=== PATIENT | female | born 1980 | race Caucasian/White ===

== ENCOUNTER 2017-06-13 08:36 | Emergency (ER) | payer SELFPAY ==
[2017-06-13] MEDS ORDERED: Ibuprofen 200 MG TAB ONE (09:18)
[2017-06-13 09:46] LABS: Bilirubin Negative (Negative); Blood, Urine Moderate (Negative); Glucose, Urine (Dipstick) Negative (Negative); Ketone, Urine Negative (Negative); Nitrite Negative (Negative); Protein, Urine (Dipstick) Negative (Neg-Trace); Urobilinogen 0.2 mg/dL (0.2-1.0)
[2017-06-13 09:46] LABS: Hematocrit 24.8 % (36.0-47.0); Red Blood Cell (RBC) Count 3.83 mill/uL (4.20-5.40)
[2017-06-13 09:59] LABS: Bacteria/HPF None Seen HPF (None Seen); Hyaline Casts/LPF 0-3 HYALINE CAST LPF (0-3 Hyaline); Squamous Epithelial 0-3 HPF (0-3); WBC/HPF None Seen HPF (0-3)
[2017-06-13 10:08] LABS: #Eosinphils 0.1 thou/uL (0.0-0.7); #Lymphocytes 1.3 thou/uL (1.20-3.40); #Monocytes 0.4 thou/uL (0.11-0.59); #Neutrophils 5.1 thou/uL (1.40-6.50); %Basophils 0.3 % (0.0-1.0); %Eosinophils 1.6 % (0.0-10.0); %Monocytes 6.2 % (0.0-10.0); Anisocytosis SLIGHT = 6-15 cells (100X) (0-5/hpf); Hypochromia SLIGHT = 6-15 cells (100X) (0-5/hpf); Microcytosis SLIGHT = 6-15 cells (100X) (0-5/hpf)
== END 2017-06-13 10:35 | disposition home or self-care (01) ==
LOC: ERS 08:36
DX: R53.83 Other fatigue (principal); R05 Cough; D50.9 Iron deficiency anemia, unspecified; Z79.899 Other long term (current) drug therapy
CPT/HCPCS: 36415; 81003; 81015; 81025; 85025; 87081; 87430; 99283

== ENCOUNTER 2017-12-12 23:58 | Emergency (ER) | payer SELFPAY ==
[2017-12-13] MEDS ORDERED: Ketorolac Tromethamine 30 MG/ML VIAL ONE (01:25)
--- NOTE | 2017-12-13 08:03 | RAD ---
RIGHT ELBOW FOUR VIEWS: HISTORY: Injury. COMPARISON: None. FINDINGS: There is a moderate sized joint effusion on the lateral radiograph. No displaced fracture is appreci ated. The soft tissues are unremarkable. IMPRESSION: Moderate sized joint effusion without displaced fracture, suggesting a radiographically occult radial head/neck fracture. Follow-up radiographs in 6-10 days can be obtained. POS: [facility]
== END 2017-12-13 02:00 | disposition home or self-care (01) ==
LOC: ERS 23:58
DX: M25.521 Pain in right elbow (principal); D50.0 Iron deficiency anemia secondary to blood loss (chronic)
CPT/HCPCS: 96372; J1885

== ENCOUNTER 2017-12-15 20:18 | Observation (INO) | payer SELFPAY ==
[2017-12-15] MEDS ORDERED: Acetaminophen 500 MG TAB ONE (20:49)
[2017-12-15] MEDS ORDERED: Metoclopramide HCl 10 MG/2 ML VIAL ONE (20:49)
--- NOTE | 2017-12-15 20:50 | RAD ---
SINGLE VIEW CHEST: 12/15/17 COMPARISON: 10/15/16 HISTORY: Weakness that began tonight with chest pain. FINDINGS: Single view of the chest shows a normal sized cardiomediastinal silhouette. There is no evidence of c onsolidation, mass, or pleural effusion. The bones are unremarkable. IMPRESSION: No evidence of acute cardiopulmonary disease. POS: [facility]
[2017-12-15 20:52] LABS: Hemoglobin 7.4 g/dL (12.0-16.0); Mean Corpuscular HGB CONC 28.8 g/dL (32.0-36.0); Mean Corpuscular Hemoglobin 17.7 pg (27.0-31.0); Mean Corpuscular Volume 61.6 fl (81.0-99.0); Mean Platelet Volume 11.1 fL (7.4-10.4); Platelet Count 390 thou/uL (130-400); RBC Distribution Width 17.3 % (11.5-14.5); Red Blood Cell (RBC) Count 4.16 mill/uL (4.20-5.40); White Blood Cell (WBC) Count 8.4 thou/uL (4.8-10.8)
[2017-12-15 20:53] LABS: Prothrombin Time 13.1 SEC (12.0-14.7)
[2017-12-15 21:09] LABS: ALT (SGPT) 17 U/L (8-55); AST (SGOT) 21 U/L (5-34); Albumin 4.1 g/dL (3.5-5.0); Alkaline Phosphatase 47 U/L (40-150); Anion Gap 11 mmol/L (10-20); BHCG - Serum Negative (NEGATIVE); BUN (Urea Nitrogen) 12 mg/dL (7.0-18.7); Bilirubin, Total 0.3 mg/dL (0.2-1.2); Calc. Creatinine Clearance 0 mL/min (70-130); Calcium 9.1 mg/dL (7.8-10.44); Carbon Dioxide 20 mmol/L (22-29); Chloride 108 mmol/L (98-107); Estimated GFR-MDRD 74; Globulin 3.8 g/dL (2.4-3.5); Glucose 108 mg/dL (70-105); Lipase 45 U/L (8-78); Potassium 3.4 mmol/L (3.5-5.1); Pregs Control Background? CLEAR/WHITE (CLR/WHITE); Pregs Control Bar Appear? YES (CONTROL BAR); Protein, Total 7.9 g/dL (6.0-8.3); Sodium 136 mmol/L (136-145)
[2017-12-15 21:10] LABS: #Basophils 0.1 thou/uL (0.0-0.2); #Lymphocytes 1.8 thou/uL (1.20-3.40); #Monocytes 0.5 thou/uL (0.11-0.59); %Basophils 0.7 % (0.0-1.0); %Eosinophils 0.6 % (0.0-10.0); %Lymphocytes 21.4 % (21.0-51.0); %Monocytes 5.6 % (0.0-10.0); %Neutrophils 71.7 % (42.0-75.0); Anisocytosis SLIGHT = 6-15 cells (100X) (0-5/hpf); Hypochromia MODERATE=16-30 cells (100X) (0-5/hpf); MDiff Complete? YES; Microcytosis MODERATE=15-30 cells (100X) (0-5/hpf); PLT Morphology Comment Appears Adequate
[2017-12-15 21:12] LABS: CKMB 1.3 ng/mL (0-6.6); Troponin I Less than 0.010 ng/mL (< 0.028)
[2017-12-15 21:29] LABS: Bilirubin Negative (Negative); Blood, Urine Negative (Negative); Clarity CLEAR (Clear); Glucose, Urine (Dipstick) Negative (Negative); Leukocyte Negative (Negative); Nitrite Negative (Negative); Protein, Urine (Dipstick) Negative (Neg-Trace); Urobilinogen 0.2 mg/dL (0.2-1.0)
[2017-12-16 00:19] LABS: Troponin I Less than 0.010 ng/mL (< 0.028)
[2017-12-16] MEDS ORDERED: Ondansetron ODT 4 MG TAB PO PRN (01:05)
[2017-12-16] MEDS ORDERED: Ondansetron HCl/PF 4 MG/2 ML Vial IVP PRN (01:05)
[2017-12-16] MEDS ORDERED: Acetaminophen 500 MG TAB PO PRN (01:05)
[2017-12-16] MEDS ORDERED: Sodium Chloride 0.9% 1,000 ML IV SCH ×2 (01:15→09:09)
[2017-12-16 01:21] LABS: Reticulocyte Count 1.4 % (0.5-1.5)
[2017-12-16] MEDS ORDERED: Potassium Chloride 20 MEQ TAB PO SCH ×3 (01:30→17:00)
[2017-12-16 01:32] LABS: Iron 15 ug/dL (50-170); Iron Binding Capacity, Total 508 mcg/dL (265-497)
[2017-12-16 02:05] VITALS: BMI 30.6
[2017-12-16 03:09] LABS: Troponin I Less than 0.010 ng/mL (< 0.028)
[2017-12-16 03:16] LABS: Anion Gap 8 mmol/L (10-20); Anisocytosis SLIGHT = 6-15 cells (100X) (0-5/hpf); BUN (Urea Nitrogen) 12 mg/dL (7.0-18.7); Calc. Creatinine Clearance 137 mL/min (70-130); Calcium 8.6 mg/dL (7.8-10.44); Carbon Dioxide 20 mmol/L (22-29); Chloride 113 mmol/L (98-107); Eosinophils 3 % (0-10); Estimated GFR-MDRD 86; Glucose 91 mg/dL (70-105); Hemoglobin 6.4 g/dL (12.0-16.0); Hypochromia MODERATE=16-30 cells (100X) (0-5/hpf); Lymphocytes 36 % (21-51); MDiff Complete? YES; Mean Corpuscular HGB CONC 29.8 g/dL (32.0-36.0); Mean Corpuscular Hemoglobin 17.9 pg (27.0-31.0); Mean Corpuscular Volume 60.3 fl (81.0-99.0); Mean Platelet Volume 10.5 fL (7.4-10.4); Microcytosis MODERATE=15-30 cells (100X) (0-5/hpf); Monocytes 2 % (0-10); Neutrophil 59 % (42-75); PLT Morphology Comment Appears Adequate; Platelet Count 285 thou/uL (130-400); Potassium 3.9 mmol/L (3.5-5.1); Red Blood Cell (RBC) Count 3.56 mill/uL (4.20-5.40); Sodium 137 mmol/L (136-145); White Blood Cell (WBC) Count 6.4 thou/uL (4.8-10.8)
--- NOTE | 2017-12-16 04:47 | HP ---
DATE OF ADMISSION: 12/15/2017 PRIMARY CARE PROVIDER: Davi in [place], [place]. CHIEF COMPLAINT: General weakness and dizziness. HISTORY OF PRESENT ILLNESS: This is a 37-year-old female who presented to [facility] complaining of increased dizziness, unsteadiness and fatigue after getting out of the bathtub today. The patient states she felt lightheaded with mild chest discomfort with a known history of a nemia. The patient states she has been iron deficient in the past and had previously been treated wi th iron supplementation; however, has been off this medication for some time. The patient also state s that she received packed red blood cells approximately 2 years prior to this evaluation after she w as discovered with a hemoglobin in the 6 range. The patient does admit her menstrual cycles are 7 to 8 days in length, generally heavy in the first 3 days, at which point she takes ibuprofen for relief of her cramps and symptoms. The patient states she usually takes 6 tablets at once on the 1st day a nd subsequently weans down to approximately 2 tablets by the time of her cycle has ended. She states typically she did not take ibuprofen on days that she is not having her menstrual cycle. The patien t denied any blood in the stool, reflux symptoms, hematemesis or easy bruising. The patient denies a ny specific chronic medications or exposure history. The patient states her last pelvic surgery was 18 years ago when she had a section. The patient admits she has had 3 deliveries, one vagin al and two sections. The patient's last menstrual cycle was from 11/25/2017 through 018. The patient states she was treated in the past with oral contraceptive pills, but these did not help her bleeding. The patient was evaluated in the emergency department with a hemoglobin of 7.4, hematocrit 25.6 and MCV of 62. Metabolic screening showed mild hyponatremia and hypokalemia. Serum beta hCG was negative. The patient states she is normally functional of all activities of daily david ng. PAST MEDICAL HISTORY: 1. Iron deficiency anemia with previous transfusion of packed red blood cells approximately 2 years prior to this evaluation. 2. Question of menorrhagia. 3. Right elbow contusion status post fall 3 days prior to this evaluation. 4. History of premature ventricular contractions. PAST SURGICAL HISTORY: Status post section x2, last performed 18 years prior to this evalua tion. BRUSH POLISHER HISTORY: 3, para 3, one spontaneous vaginal delivery and 2 sections. Last m enstrual period 11/25/2017 through 12/03/2017. CURRENT MEDICATIONS: Ibuprofen as needed. ALLERGIES: No known drug allergies. FAMILY HISTORY: No inheritable diseases per patient report. SOCIAL HISTORY: The patient denies any tobacco or illicit drug use. Social alcohol use. Resides in the [place], [place] area. REVIEW OF SYSTEMS: The following complete review of systems was negative, unless otherwise mentioned in the HPI or below: Constitutional: Weight loss or gain, ability to conduct usual activities. Sk in: Rash, itching. Eyes: Double vision, pain. ENT/Mouth: Nose bleeding, neck stiffness, pain, te nderness. Cardiovascular: Palpitations, dyspnea on exertion, orthopnea. Respiratory: Shortness of breath, wheezing, cough, hemoptysis, fever or night sweats. Gastrointestinal: Poor appetite, abdom inal pain, heartburn, nausea, vomiting, constipation, or diarrhea. Genitourinary: Urgency, frequenc y, dysuria, nocturia. Musculoskeletal: Pain, swelling. Neurologic/Psychiatric: Anxiety, depressio n. Allergy/Immunologic: Skin rash, bleeding tendency. Otherwise negative except as stated per HPI. PHYSICAL EXAMINATION: VITAL SIGNS: On admission, blood pressure 103/75, pulse 89, respiratory rate 17, temperature 98.5 de grees Fahrenheit, O2 saturation 100% on room air. GENERAL APPEARANCE: This is a 37-year-old female, alert and oriented x3, pleasant, pale ap pearing, in no acute distress. HEENT: Pupils are equal, round, and reactive to light and accommodation. Extraocular muscles are in tact. No scleral icterus, no conjunctival injection. Nares patent. OP is clear. Teeth in fair rep air. NECK: Supple, no cervical adenopathy, no thyromegaly, no carotid bruits, no JVD appreciated. Cervic al spine with full active and passive range of motion. No meningeal signs appreciated. CHEST: Lungs are clear to auscultation bilaterally. CARDIOVASCULAR: S1, S2 with premature beats noted. ABDOMEN: Rounded, soft, nontender, nondistended. Bowel sounds are positive in all four quadrants. There is no hepatosplenomegaly, no abdominal bruits, no rebound or guarding appreciated. EXTREMITIES: Warm and dry with fair turgor. No clubbing, cyanosis or asymmetric edema appreciated. Pulses palpable distally at the dorsalis pedis, posterior tibial, and popliteal arteries bilaterally . Capillary refill less than 2 seconds. SKIN: Shows multiple tattoos of the extremities. PERTINENT LABORATORY AND X-RAY FINDINGS: Sodium 136, potassium 3.4, chloride 108, CO2 of 20, BUN 12, creatinine 0.85, estimated GFR of 74, glucose 108. Lactic acid level 0.9, calcium 9.1. LFTs within normal limits. Troponin I negative x1. Albumin 4.1, lipase 45. TSH 2.88. Serum beta hCG negative on 12/15/2017. CBC showed a white blood cell count 8.4, hemoglobin 7.4, hematocrit 26, MCV 62, plat elet count 390 with normal differential. PT 13.1, INR 1.0, PTT 30.0. Urinalysis negative. Stool He moccult dated 12/15/2017 positive x1. EKG dated 12/15/2017 by my interpretation shows sinus mechanis m with heart rates in the 90s. PVCs noted. Normal R-wave progression noted in the precordial leads. Normal axis. No acute ST-T wave changes appreciated. Portable chest x-ray dated 12/15/2017 showed no acute cardiopulmonary process. ASSESSMENT AND PLAN: 1. Symptomatic microcytic anemia. The patient will be observed on the medical floor. Suspect chron ic iron deficiency component with influence of menorrhagia. We will continue serial H and H monitori ng. Suspect vaginal source. Consider transfusion of packed red blood cells if patient's hemoglobin continues to decrease. Check serum iron, TIBC, ferritin and reticulocyte count. Recommend sitter fe rrous sulfate 325 mg b.i.d. 2. Menorrhagia. We will check pelvic ultrasound to assess for evidence of uterine fibroids. Consid er CERTIFIED CYTOTECHNOLOGIST consult potentially as outpatient. 3. Hypokalemia. We will provide potassium chloride 40 mEq b.i.d. and repeat potassium level in the a.m. 4. Prophylaxis. Sequential compression devices while in bed. Pepcid 20 mg p.o. b.i.d. 5. Code status is FULL. Surrogate medical decision maker is patient's spouse.
[2017-12-16] MEDS ORDERED: Famotidine 20 MG TAB PO SCH (09:00)
[2017-12-16] MEDS ORDERED: Iron Sucrose Complex 200 MG in Sodium Chloride 0.9% 250 ML 250 ML IVPB SCH (09:15)
[2017-12-16] MEDS ORDERED: Sodium Ferric Gluconate 250 MG, Admixture Fee 1 EACH in Sodium Chloride 0.9% 250 ML 250 ML IVPB SCH (09:15)
[2017-12-16] MEDS ORDERED: Cyanocobalamin (Vitamin B-12) 1,000 MCG TAB PO SCH (10:00)
[2017-12-16] MEDS ORDERED: Multivit, Therapeutic 1 TAB PO SCH (10:00)
[2017-12-16] MEDS ORDERED: Folic Acid 1 MG TAB PO SCH (10:00)
--- NOTE | 2017-12-16 11:31 | ULT ---
TRANSVAGINAL PELVIC ULTRASOUND WITH DOPPLER: HISTORY: Menorrhagia. Anemia. COMPARISON: Pelvis ultrasound from 2011. TECHNIQUE: Real-time mohamud-scale color Doppler and spectral analysis of the pelvis was performed via a transabdom inal and transvaginal approach. FINDINGS: The uterus measures 11.6 x 4.7 x 6.4 cm. Endometrial thickness is 1 cm. There is a 1.8 cm hypoechoic focus at the uterine fundus. There is a complex cyst of the left ovary, measuring 2.7 x 2 x 2.7 cm. Small volume fluid in the endometrial canal. Vascular flow to both ovaries is limited. The right ovary measures 3.8 x 2.7 x 1.5 cm, and the left ovary measures 3.6 x 3 x 2.3 cm. No free f luid. IMPRESSION: 1. Small hypoechoic focus of the uterine fundus, measuring up to 1.8 cm, likely a small fibroid. 2. Small volume fluid within the endometrial canal, which may represent hemorrhage. 3. Complex left ovarian cyst, measuring up to 2.7 cm. POS: [facility]
[2017-12-16 12:27] VITALS: BP 118/57; TEMP 98.2
[2017-12-16 12:31] LABS: Hemoglobin 7.6 g/dL (12.0-16.0); Platelet Count 253 thou/uL (130-400)
--- NOTE | 2017-12-17 06:58 | DIS ---
DATE OF DISCHARGE: 12/16/2017 DISCHARGE DISPOSITION: Home. FOLLOWUP: 1. With [facility] in 1 week. 2. Follow up with [employer] as outpatient at [facility]. BRIEF HOSPITAL COURSE: Patient is a 37-year-old female with menorrhagia and chronic iron deficiency requiring blood transfusions in the past, presented to the hospital with generalized weakness and diz ziness. Her workup was consistent with hemoglobin of 6.4 with reticulocyte of 1.4, iron of 15, TIBC 508, ferritin of less than 2. Please refer to the history and physical for further details. The patient was admitted to the medical floor with a diagnosis of symptomatic anemia. She received 1 unit of PRBC due to hemoglobin of less than 7. She also received 200 mg of iron sucrose complex. A pelvic ultrasound was done that showed a complex ovarian cyst along with 1.8 cm possible fibroid. A n outpatient DOCUMENTATION CLERK workup at the [facility] is recommended. Please note that patient had stool for occult blood that was positive. She denies any melena, hemato chezia, or hematemesis. She may benefit from an outpatient GI evaluation. At this time, the patient has menorrhagia and it is the probable cause of the anemia. A repeat hemoglobin after 1 week is rec ommended. Primary care physician advised to follow. She has been started on oral iron supplementati on, folic acid, multivitamin, and vitamin B12. FINAL DIAGNOSES: 1. Symptomatic anemia, status post 1 unit of PRBC. 2. Iron deficiency anemia. 3. Chronic menorrhagia. 4. Hypokalemia, corrected. 5. Obesity with a body mass index of 30.6. SIGNIFICANT LABORATORY DATA: 1. TSH was 2.8. 2. Troponins were negative. 3. MCV 61.6, MCH 17.7. Plan of care was discussed with the patient in detail. She stated understanding.
--- NOTE | 2017-12-26 00:25 | EKG ---
Test Reason : CP Blood Pressure : / mmHG Vent. Rate : 094 BPM Atrial Rate : 097 BPM P-R Int : 116 ms QRS Dur : 086 ms QT Int : 372 ms P-R-T Axes : 000 026 025 degrees QTc Int : 465 ms Undetermined rhythm Nonspecific ST and T wave abnormality Prolonged QT Abnormal ECG Confirmed by ALYSON AVILA ([id number]), business editor KWABENA POLANCO ([id number]) on 12/26/2017 12:25:03 AM Referred By: Confirmed By:ALYSON AVILA
== END 2017-12-16 15:20 | disposition home or self-care (01) ==
LOC: ERS 20:18 → 2SW 22:53
PROVIDERS: ADMIT Family Medicine; ATTEND Family Medicine
DX: D50.0 Iron deficiency anemia secondary to blood loss (chronic) (principal); N92.0 Excessive and frequent menstruation with regular cycle; E87.6 Hypokalemia; E66.9 Obesity, unspecified; Z68.30 Body mass index [BMI] 30.0-30.9, adult
CPT/HCPCS: 36415; 36430; 71045; 76856; 80048; 80053; 81003; 82274; 82553; 82728; 83540; 83550; 83605; 83690; 84443; 84484; 84703; 85007; 85025; 85027; 85046; 85610; 85730; 86850; 86900; 86901; 93005; 96361; 96365; 96366; 96374; G0378; J2765; J2916; J7050; P9016

== ENCOUNTER 2017-12-19 20:51 | Emergency (ER) | payer SELFPAY ==
[2017-12-19] MEDS ORDERED: HYDROcodone/Acetaminophen 10/325 mg Tablet ONE (21:11)
--- NOTE | 2017-12-19 23:12 | ULT ---
DOPPLER VENOUS ULTRASOUND OF THE RIGHT UPPER EXTREMITY: Indication: Pain, redness, and swelling. Previous ===== near the antecubital fossa of the right upper extremity. Technique: Grayscale, color doppler, and vascular duplex with spectral analysis of performed of the v enous structures of the right upper extremity. FINDINGS: There is normal compression, flow, and augmentation seen within the venous structures of the right up per extremity except for the cephalic vein at the level of the mid right arm to the level of the elbo w. There is some partially occlusive thrombus seen at the level of the elbow with more occlusive clot seen at the level of the arm. IMPRESSION: 1. Venous thrombosis of the right cephalic vein from the elbow to the mid right arm. 2. No evidence of additional venous thrombosis. POS: [facility]
== END 2017-12-19 22:46 | disposition home or self-care (01) ==
LOC: ERS 20:51
DX: I80.9 Phlebitis and thrombophlebitis of unspecified site (principal); L03.113 Cellulitis of right upper limb; D50.0 Iron deficiency anemia secondary to blood loss (chronic)

== ENCOUNTER 2017-12-29 15:20 | Emergency (ER) | payer SELFPAY | END 2017-12-29 18:33 | disposition home or self-care (01) | LOC: ERS 15:20 | DX: I87.001 Postthrombotic syndrome without complications of right lower extremity (principal); I80.8 Phlebitis and thrombophlebitis of other sites; D50.0 Iron deficiency anemia secondary to blood loss (chronic) | CPT/HCPCS: 99283 ==

== ENCOUNTER 2018-02-22 19:03 | Emergency (ER) | payer SELFPAY ==
--- NOTE | 2018-02-22 22:25 | ULT ---
RIGHT UPPER EXTREMITY VENOUS ULTRASOUND: 02/22/18 HISTORY: Right arm pain. Previous thrombus. COMPARISON: 12/19/17. TECHNIQUE: De Leon scale, color flow, doppler imaging with spectral waveform analysis performed in the right upper extremity venous system. FINDINGS: There is compressibility and flow in the internal jugular vein. There is flow in the subclavian vein. There is flow in the axillary vein. There is compressibility and flow in the basilic vein, ulnar vei n, radial vein, and brachial vein. There is improved flow in the cephalic vein. There is partial comp ressibility just below level of the elbow. Partial thrombus is favored. The remainder of the cephalic vein appears to be patent. IMPRESSION: Partial thrombus in the cephalic vein just below the level of the elbow. POS: [facility]
== END 2018-02-22 22:27 | disposition home or self-care (01) ==
LOC: ERS 19:03
DX: I87.009 Postthrombotic syndrome without complications of unspecified extremity (principal); D50.9 Iron deficiency anemia, unspecified

== ENCOUNTER 2018-03-23 18:17 | Emergency (ER) | payer SELFPAY ==
[2018-03-23] MEDS ORDERED: Ketorolac Tromethamine 30 MG/ML VIAL ONE (18:38)
[2018-03-23] MEDS ORDERED: Adacel (T-DAP) 0.5 ML VIAL ONE (18:38)
== END 2018-03-23 18:54 | disposition home or self-care (01) ==
LOC: ERS 18:17
DX: L03.311 Cellulitis of abdominal wall (principal); D50.9 Iron deficiency anemia, unspecified; Z79.899 Other long term (current) drug therapy
CPT/HCPCS: 90471; 90715; 96372; J1885

== ENCOUNTER 2018-05-18 11:08 | Emergency (ER) | payer SELFPAY ==
[2018-05-18 11:54] LABS: #Basophils 0.1 thou/uL (0.0-0.2); #Eosinphils 0.1 thou/uL (0.0-0.7); #Lymphocytes 2.2 thou/uL (1.20-3.40); #Monocytes 0.8 thou/uL (0.11-0.59); #Neutrophils 8.3 thou/uL (1.40-6.50); %Basophils 0.5 % (0.0-1.0); %Eosinophils 0.6 % (0.0-10.0); %Lymphocytes 19.1 % (21.0-51.0); %Monocytes 7.1 % (0.0-10.0); %Neutrophils 72.6 % (42.0-75.0); Hemoglobin 8.2 g/dL (12.0-16.0); Mean Corpuscular HGB CONC 30.5 g/dL (32.0-36.0); Mean Corpuscular Hemoglobin 20.6 pg (27.0-31.0); Mean Corpuscular Volume 67.6 fL (78.0-98.0); Mean Platelet Volume 7.7 fL (7.4-10.4); Platelet Count 343 thou/uL (130-400); Red Blood Cell (RBC) Count 3.97 mill/uL (4.20-5.40); White Blood Cell (WBC) Count 11.5 thou/uL (4.8-10.8)
[2018-05-18 12:26] LABS: Hypochromia MODERATE=16-30 cells (100X) (0-5/hpf); MDiff Complete? YES; Microcytosis MODERATE=15-30 cells (100X) (0-5/hpf); Ovalocytes SLIGHT = 2-5 cells (100X) (0-1/hpf); PLT Morphology Comment Appears Adequate; Polychromasia SLIGHT = 2-3 cells (100X) (0-2/hpf); Reflex for Review?? YES
[2018-05-18 13:12] LABS: Pregnancy Test - Urine (BHCG) Negative (Negative); Pregu Control Background? CLEAR/WHITE (CLR/WHITE); Pregu Control Bar Appear? YES (CONTROL BAR); Specific Gravity 1.022 (1.002-1.036)
[2018-05-18 13:20] LABS: Anion Gap 10 mmol/L (10-20); BUN (Urea Nitrogen) 13 mg/dL (7.0-18.7); Calc. Creatinine Clearance 0 mL/min (70-130); Carbon Dioxide 22 mmol/L (22-29); Chloride 108 mmol/L (98-107); Estimated GFR-MDRD 68; Glucose 87 mg/dL (70-105); Potassium 3.4 mmol/L (3.5-5.1); Sodium 137 mmol/L (136-145)
== END 2018-05-18 15:05 | disposition home or self-care (01) ==
LOC: ERS 11:08
DX: D50.0 Iron deficiency anemia secondary to blood loss (chronic) (principal); N93.9 Abnormal uterine and vaginal bleeding, unspecified
CPT/HCPCS: 80048; 81025; 85025; 85060; 86850; 86900; 86901; 93005; 94760

== ENCOUNTER 2018-07-05 17:04 | Emergency (ER) | payer SELFPAY ==
[2018-07-05 17:44] LABS: #Eosinphils 0.1 thou/uL (0.0-0.7); #Monocytes 0.5 thou/uL (0.11-0.59); #Neutrophils 4.7 thou/uL (1.40-6.50); %Basophils 0.6 % (0.0-1.0); %Eosinophils 1.2 % (0.0-10.0); %Lymphocytes 27.3 % (21.0-51.0); %Monocytes 7.2 % (0.0-10.0); %Neutrophils 63.7 % (42.0-75.0); Mean Corpuscular HGB CONC 29.2 g/dL (32.0-36.0); Mean Corpuscular Volume 68.5 fL (78.0-98.0); Mean Platelet Volume 8.5 fL (7.4-10.4); Platelet Count 306 thou/uL (130-400); RBC Distribution Width 16.9 % (11.5-14.5); White Blood Cell (WBC) Count 7.3 thou/uL (4.8-10.8)
[2018-07-05 18:33] LABS: BHCG - Serum Negative (NEGATIVE); Pregs Control Background? CLEAR/WHITE (CLR/WHITE); Pregs Control Bar Appear? YES (CONTROL BAR)
[2018-07-05] MEDS ORDERED: Ketorolac Tromethamine 30 MG/ML VIAL ONE (18:48)
== END 2018-07-05 19:13 | disposition home or self-care (01) ==
LOC: ERS 17:04
DX: N94.6 Dysmenorrhea, unspecified (principal); D50.9 Iron deficiency anemia, unspecified
CPT/HCPCS: 36415; 84703; 85025; 96374; J1885

== ENCOUNTER 2018-09-26 12:08 | Emergency (ER) | payer SELFPAY | END 2018-09-26 13:52 | disposition left against medical advice (07) | LOC: ERS 12:08 | DX: Z53.21 Procedure and treatment not carried out due to patient leaving prior to being seen by health care provider (principal) ==

== ENCOUNTER 2018-10-17 16:05 | Emergency (ER) | payer SELFPAY ==
--- NOTE | 2018-10-17 19:31 | RAD ---
ONE VIEW CHEST: HISTORY: Cough. Congestion. Bodyaches. COMPARISON: 12/15/2017 FINDINGS: Normal cardiac silhouette. There is an increased density projecting to the right of the spine, over the right heart silhouette. Findings may be due to ectasia of the descending thoracic aorta. Noneme rgent CT is recommended. Pulmonary vessels and hilum are normal. Costophrenic angles are clear. No masses or consolidation. No pneumothorax or osseous abnormalities. IMPRESSION: 1. No acute cardiopulmonary process. 2. Increased density projecting over the right heart border. Findings may be due to ectasia of the descending thoracic aorta. Nonemergent CT scan be performed. POS: [facility]
== END 2018-10-17 19:50 | disposition home or self-care (01) ==
LOC: ERS 16:05
DX: J20.9 Acute bronchitis, unspecified (principal); D50.9 Iron deficiency anemia, unspecified; Z79.899 Other long term (current) drug therapy
CPT/HCPCS: 71045; 87081; 87430; 87804

== ENCOUNTER 2018-10-24 13:20 | Emergency (ER) | payer SELFPAY ==
[2018-10-24 14:38] LABS: #Basophils 0.1 thou/uL (0.0-0.2); #Eosinphils 0.1 thou/uL (0.0-0.7); #Monocytes 0.6 thou/uL (0.11-0.59); #Neutrophils 6.3 thou/uL (1.40-6.50); %Basophils 0.7 % (0.0-1.0); %Eosinophils 0.8 % (0.0-10.0); %Monocytes 6.6 % (0.0-10.0); %Neutrophils 69.8 % (42.0-75.0)
--- NOTE | 2018-10-24 14:50 | RAD ---
CHEST 2 VIEWS: Date: 10/24/18 HISTORY: Cough. COMPARISON: 10/15/16, 10/17/18. FINDINGS: Normal cardiac silhouette. Pulmonary vessels and hilum are normal. Costophrenic angles are clear. No consolidation or mass. No pneumothorax or osseous abnormalities. IMPRESSION: No acute cardiopulmonary process. POS: [facility]
[2018-10-24 14:54] LABS: ALT (SGPT) 10 U/L (8-55); AST (SGOT) 14 U/L (5-34); Albumin 3.6 g/dL (3.5-5.0); Alkaline Phosphatase 53 U/L (40-150); Anion Gap 10 mmol/L (10-20); BUN (Urea Nitrogen) 11 mg/dL (7.0-18.7); Bilirubin, Total 0.2 mg/dL (0.2-1.2); Calc. Creatinine Clearance 0 mL/min (70-130); Calcium 8.6 mg/dL (7.8-10.44); Carbon Dioxide 21 mmol/L (22-29); Chloride 110 mmol/L (98-107); Estimated GFR-MDRD 81; Globulin 3.4 g/dL (2.4-3.5); Glucose 86 mg/dL (70-105); Sodium 137 mmol/L (136-145)
[2018-10-24 15:16] LABS: Hemoglobin 8.6 g/dL (12.0-16.0); Hypochromia MODERATE=16-30 cells (100X) (0-5/hpf); MDiff Complete? YES; Mean Corpuscular HGB CONC 29.6 g/dL (32.0-36.0); Mean Platelet Volume 7.8 fL (7.4-10.4); Microcytosis MODERATE=15-30 cells (100X) (0-5/hpf); Platelet Count 337 thou/uL (130-400); Platelet Morphology Comment Appears Adequate; Polychromasia SLIGHT = 2-3 cells (100X) (0-2/hpf); RBC Distribution Width 15.5 % (11.5-14.5); Red Blood Cell (RBC) Count 4.09 mill/uL (4.20-5.40); Reflex for Review?? YES
== END 2018-10-24 16:34 | disposition home or self-care (01) ==
LOC: ERS 13:20
DX: J20.9 Acute bronchitis, unspecified (principal); D50.9 Iron deficiency anemia, unspecified; Z79.899 Other long term (current) drug therapy
CPT/HCPCS: 36415; 71046; 80053; 85025; 85060

== ENCOUNTER 2018-12-04 21:44 | Emergency (ER) | payer SELFPAY ==
[2018-12-04 22:25] LABS: Hemoglobin 8.1 g/dL (12.0-16.0); Mean Corpuscular HGB CONC 29.4 g/dL (32.0-36.0); Mean Corpuscular Hemoglobin 20.4 pg (27.0-31.0); Mean Corpuscular Volume 69.3 fL (78.0-98.0); Mean Platelet Volume 7.4 fL (7.4-10.4); Platelet Count 412 thou/uL (130-400); RBC Distribution Width 16.1 % (11.5-14.5); Red Blood Cell (RBC) Count 3.95 mill/uL (4.20-5.40); White Blood Cell (WBC) Count 7.6 thou/uL (4.8-10.8)
[2018-12-04 22:42] LABS: #Basophils 0.1 thou/uL (0.0-0.2); #Eosinphils 0.1 thou/uL (0.0-0.7); #Lymphocytes 2.4 thou/uL (1.20-3.40); #Monocytes 0.5 thou/uL (0.11-0.59); #Neutrophils 4.5 thou/uL (1.40-6.50); %Basophils 0.8 % (0.0-1.0); %Eosinophils 1.1 % (0.0-10.0); %Lymphocytes 31.4 % (21.0-51.0); %Monocytes 7.1 % (0.0-10.0); %Neutrophils 59.7 % (42.0-75.0); Hypochromia SLIGHT = 6-15 cells (100X) (0-5/hpf); MDiff Complete? YES; Microcytosis SLIGHT = 6-15 cells (100X) (0-5/hpf)
[2018-12-04 22:44] LABS: ALT (SGPT) 17 U/L (8-55); AST (SGOT) 17 U/L (5-34); Albumin 3.7 g/dL (3.5-5.0); Alkaline Phosphatase 54 U/L (40-150); Anion Gap 12 mmol/L (10-20); BUN (Urea Nitrogen) 13 mg/dL (7.0-18.7); Bilirubin, Total 0.2 mg/dL (0.2-1.2); Calc. Creatinine Clearance 0 mL/min (70-130); Calcium 9.3 mg/dL (7.8-10.44); Carbon Dioxide 24 mmol/L (22-29); Chloride 106 mmol/L (98-107); Estimated GFR-MDRD 72; Globulin 3.6 g/dL (2.4-3.5); Glucose 146 mg/dL (70-105); Potassium 3.9 mmol/L (3.5-5.1); Protein, Total 7.3 g/dL (6.0-8.3); Sodium 138 mmol/L (136-145)
[2018-12-05] MEDS ORDERED: Ketorolac Tromethamine 60 MG/2 ML VIAL ONE (00:14)
[2018-12-05 00:22] LABS: Pregnancy Test - Urine (BHCG) Negative (Negative); Pregu Control Background? CLEAR/WHITE (CLR/WHITE); Pregu Control Bar Appear? YES (CONTROL BAR)
[2018-12-05 00:23] LABS: Bilirubin Negative (Negative); Blood, Urine Large (Negative); Clarity CLOUDY (Clear); Glucose, Urine (Dipstick) Negative (Negative); Leukocyte Small (Negative); Nitrite Negative (Negative); Protein, Urine (Dipstick) Negative (Neg-Trace); Specific Gravity 1.016 (1.002-1.036); Specific Gravity, Urine 1.016 (1.002-1.036); Urobilinogen 0.2 mg/dL (0.2-1.0)
[2018-12-05 00:24] LABS: Pathc Cast-AUWi Flag 1.08 (0-2.49); Yeast-AUWi Flag 39.9 (0-25.0)
[2018-12-05 00:37] LABS: Bacteria/HPF Rare-Few HPF (None Seen); Hyaline Casts/LPF NONE SEEN LPF (0-3 Hyaline); RBC/HPF 21-50 HPF (0-3); Trichomonas/HPF 1+ HPF (None Seen); Yeast-All Forms None Seen HPF (None Seen)
== END 2018-12-05 00:50 | disposition home or self-care (01) ==
LOC: ERS 21:44
DX: A59.9 Trichomoniasis, unspecified (principal); R10.30 Lower abdominal pain, unspecified; D50.0 Iron deficiency anemia secondary to blood loss (chronic); Z79.51 Long term (current) use of inhaled steroids; Z79.899 Other long term (current) drug therapy
CPT/HCPCS: 36415; 80053; 81003; 81015; 81025; 83690; 85025; 96372; J1885

== ENCOUNTER 2019-03-08 21:30 | Emergency (ER) | payer SELFPAY | END 2019-03-08 21:50 | disposition home or self-care (01) | LOC: SCSER 21:30 | DX: R11.2 Nausea with vomiting, unspecified (principal); R19.7 Diarrhea, unspecified | CPT/HCPCS: 99283 ==

== ENCOUNTER 2019-03-13 15:52 | Emergency (ER) | payer SELFPAY ==
[2019-03-13 16:28] LABS: Hemoglobin 7.2 g/dL (12.0-16.0); Mean Corpuscular Hemoglobin 18.9 pg (27.0-31.0); Mean Corpuscular Volume 65.1 fL (78.0-98.0); Platelet Count 354 thou/uL (130-400); RBC Distribution Width 16.5 % (11.5-14.5); Red Blood Cell (RBC) Count 3.79 mill/uL (4.20-5.40); White Blood Cell (WBC) Count 6.5 thou/uL (4.8-10.8)
[2019-03-13 16:47] LABS: ALT (SGPT) 17 U/L (8-55); AST (SGOT) 19 U/L (5-34); Albumin 3.8 g/dL (3.5-5.0); Alkaline Phosphatase 44 U/L (40-150); Anion Gap 11 mmol/L (10-20); BUN (Urea Nitrogen) 12 mg/dL (7.0-18.7); Bilirubin, Total 0.3 mg/dL (0.2-1.2); Calc. Creatinine Clearance 0 mL/min (70-130); Calcium 8.7 mg/dL (7.8-10.44); Carbon Dioxide 24 mmol/L (22-29); Chloride 109 mmol/L (98-107); Estimated GFR-MDRD 68; Globulin 3.3 g/dL (2.4-3.5); Glucose 73 mg/dL (70-105); Potassium 3.6 mmol/L (3.5-5.1); Protein, Total 7.1 g/dL (6.0-8.3); Sodium 140 mmol/L (136-145)
[2019-03-13 17:01] LABS: #Eosinphils 0.1 thou/uL (0.0-0.7); #Lymphocytes 1.6 thou/uL (1.20-3.40); #Monocytes 0.5 thou/uL (0.11-0.59); #Neutrophils 4.3 thou/uL (1.40-6.50); %Basophils 0.6 % (0.0-1.0); %Eosinophils 1.2 % (0.0-10.0); %Lymphocytes 24.9 % (21.0-51.0); %Monocytes 6.9 % (0.0-10.0); %Neutrophils 66.4 % (42.0-75.0); Anisocytosis SLIGHT = 6-15 cells (100X) (0-5/hpf); Hypochromia SLIGHT = 6-15 cells (100X) (0-5/hpf); MDiff Complete? YES; Microcytosis SLIGHT = 6-15 cells (100X) (0-5/hpf); Platelet Morphology Comment Appears Adequate
[2019-03-13] MEDS ORDERED: Acetaminophen 500 MG TAB ONE (18:08)
--- NOTE | 2019-03-13 22:09 | CON ---
DATE OF CONSULTATION: 03/13/2019 CHIEF COMPLAINT: Vaginal bleeding. HISTORY OF PRESENT ILLNESS: The patient is a 38-year-old G3, P3 female, who is presenting to Labor and Delivery with longstanding vaginal bleeding. The patient reports that she has had multiple blood transfusions over the years here at [place]. She reports that she bleeds about 2 weeks out of the month with about 6-7 days of heavy bleeding requiring 6-7 of pads and tampons and the other days she reports are having more light. The patient reports she has had again multiple blood transfusions in the last several years. She was seen by Dr. Cass Denis about 5 months ago, who had recommended hysterectomy. However, the patient is without insurance and at that time had not acquired any. The patient reports that she in the past had been on multiple control pills in an attempt to get her bleeding under control. She does report she had a Pap smear done [address] Cass Denis, which came back negative. She was last seen in the emergency room about a year ago for vaginal bleeding, but was not transfused at that time. Reviewing the record, it appears that the patient had only 1 unit of blood in the last 3 years. I do not have access to prior years' at the time of evaluation. The patient denies any history of thrombosis or blood clots; however, in reviewing her medical record, it she appears a year ago in December 2017, had a venous thrombus of the right cephalic vein for which she presented for pain, redness and swelling. The patient was diagnosed with superficial thrombophlebitis and no evidence of deep vein thrombosis. The patient was given instructions on how to care for this and did not indicate anticoagulation. The patient denies any recent fevers, illness, falls, headache. She does report dizziness, fatigue and lightheadedness. Denies chest pain, shortness of breath, nausea, vomiting, diarrhea, constipation. Denies hip problems, knee problems or muscle weakness. PAST MEDICAL HISTORY: Anemia. PAST SURGICAL HISTORY: Two prior C-sections. SOCIAL HISTORY: Denies drug, alcohol or tobacco use. ALLERGIES: NO KNOWN DRUG ALLERGIES. MEDICATIONS: Iron, which she takes daily. PHYSICAL EXAMINATION: VITAL SIGNS: Reviewed and within normal limits. GENERAL: The patient appears to be in no acute distress. She is alert, oriented, cooperative, and pleasant to interact with. HEAD: Normocephalic, atraumatic. LUNGS: Clear to auscultation bilaterally. HEART: Regular rate and rhythm. ABDOMEN: Soft, nontender. EXTREMITIES: Nontender, nonedematous. : Has been deferred at this time. The patient reports that her bleeding is heavy, but it is slowing down. Given her reported history of normal Pap smears and requested to for endometrial biopsy until her bleeding is under better control, we have deferred exam. LABORATORY DATA: White count 6.5, hemoglobin 7.2, hematocrit 24.7, platelets 354,000. ASSESSMENT AND PLAN: The patient is a 38-year-old female with chronic anemia contributed by menorrhagia. The patient has a primary OB provide, Dr. Cass Denis who has been managing her. The patient has not followed up due to finding restraints. I have recommended to the ER physician 10 mg of progesterone twice a day to be taken until she can follow up with her primary OB. The patient does report that she is toward the end of her heavy days and should be going to light. For this reason, we have not started her on Lysteda or any other additional medication. We were unable to identify patient's history of blood transfusions. However, given her reported history, we can find documentation of these multiple transfusions in the past and if patient wants a blood transfusion with this presentation, it is reasonable at this point to discuss more further evaluation for endometrial ablation in-house to help eliminate repetitive visits to the ER and future transfusions. The ER physician and I have discussed these potential plans and she will be contacting me should the patient upon her evaluation require a blood transfusion. Job ID: [id number]
== END 2019-03-13 18:29 | disposition home or self-care (01) ==
LOC: ERS 15:52
DX: D64.89 Other specified anemias (principal); N92.0 Excessive and frequent menstruation with regular cycle; Z79.899 Other long term (current) drug therapy
CPT/HCPCS: 36415; 80053; 85025; 99284

== ENCOUNTER 2019-04-16 14:06 | Emergency (ER) | payer SELFPAY ==
[~2019-04-16 14:06] MED LIST: ISOVUE-370 76%-LOCM 1 ML ONE
[2019-04-16 15:48] LABS: #Basophils 0.1 thou/uL (0.0-0.2); #Eosinphils 0.1 thou/uL (0.0-0.7); #Lymphocytes 2.1 thou/uL (1.20-3.40); #Monocytes 0.6 thou/uL (0.11-0.59); #Neutrophils 6.1 thou/uL (1.40-6.50); %Basophils 0.7 % (0.0-1.0); %Eosinophils 1.2 % (0.0-10.0); %Lymphocytes 23.1 % (21.0-51.0); Hemoglobin 7.9 g/dL (12.0-16.0); Mean Corpuscular HGB CONC 29.5 g/dL (32.0-36.0); Mean Corpuscular Hemoglobin 18.6 pg (27.0-31.0); Mean Corpuscular Volume 63.1 fL (78.0-98.0); Mean Platelet Volume 8.8 fL (7.4-10.4); Platelet Count 365 thou/uL (130-400); RBC Distribution Width 17.3 % (11.5-14.5); Red Blood Cell (RBC) Count 4.24 mill/uL (4.20-5.40)
--- NOTE | 2019-04-16 15:56 | RAD ---
Chest AP view INDICATION: Chest pain COMPARISON: October 17, 2018 FINDINGS: Lungs:The lungs are clear Cardiac silhouette pulmonary vasculature:The cardiomediastinal silhouette appears within normal limit s. Pleural spaces:No pleural effusion or pneumothorax is demonstrated. Upper abdomen:No abnormality seen. Osseous structures: No acute osseous abnormality. Additional findings:None. IMPRESSION: No acute cardiopulmonary abnormality.
[2019-04-16 15:59] LABS: ALT (SGPT) 17 U/L (8-55); AST (SGOT) 21 U/L (5-34); Albumin 3.8 g/dL (3.5-5.0); Alkaline Phosphatase 55 U/L (40-150); Anion Gap 10 mmol/L (10-20); BUN (Urea Nitrogen) 12 mg/dL (7.0-18.7); Bilirubin, Total 0.3 mg/dL (0.2-1.2); Calc. Creatinine Clearance 0 mL/min (70-130); Carbon Dioxide 20 mmol/L (22-29); Chloride 108 mmol/L (98-107); Estimated GFR-MDRD 76; Globulin 3.5 g/dL (2.4-3.5); Glucose 79 mg/dL (70-105); Lipase 37 U/L (8-78); Potassium 4.1 mmol/L (3.5-5.1); Protein, Total 7.3 g/dL (6.0-8.3); Sodium 134 mmol/L (136-145)
[2019-04-16 16:24] LABS: BHCG - Serum Negative (NEGATIVE); Pregs Control Background? CLEAR/WHITE (CLR/WHITE); Pregs Control Bar Appear? YES (CONTROL BAR)
--- NOTE | 2019-04-16 17:02 | CT ---
CT arteriogram chest with IV contrast and 3-D imaging HISTORY: Chest pain. Elevated d-dimer. FINDINGS: There is good contrast opacification of the pulmonary arteries and thoracic aorta with norm al branching of the great vessels at the aortic arch. Nonspecific lymph nodes throughout the mediastinum. No pleural fluid, lobar consolidation, or mediastinal adenopathy. IMPRESSION: No CT evidence of pulmonary embolus.
== END 2019-04-16 17:19 | disposition home or self-care (01) ==
LOC: ERS 14:06
DX: R07.89 Other chest pain (principal)
CPT/HCPCS: 36415; 71045; 71275; 80053; 83690; 84484; 84703; 85025; 85379; 93005; Q9966

== ENCOUNTER 2019-07-18 11:02 | Emergency (ER) | payer SELFPAY | END 2019-07-18 12:36 | disposition home or self-care (01) | LOC: ERS 11:02 | DX: R09.81 Nasal congestion (principal); D64.9 Anemia, unspecified; Z79.899 Other long term (current) drug therapy | CPT/HCPCS: 87804; 99283 ==

== ENCOUNTER 2019-09-20 18:34 | Emergency (ER) | payer SELFPAY | END 2019-09-20 19:05 | disposition home or self-care (01) | LOC: ERS 18:34 | DX: J06.9 Acute upper respiratory infection, unspecified (principal); D64.9 Anemia, unspecified | CPT/HCPCS: 99281 ==

== ENCOUNTER 2019-09-30 12:19 | Emergency (ER) | payer SELFPAY ==
[2019-09-30 12:47] LABS: #Basophils 0.1 thou/uL (0.0-0.2); #Eosinphils 0.1 thou/uL (0.0-0.7); #Lymphocytes 1.9 thou/uL (1.20-3.40); #Monocytes 0.6 thou/uL (0.11-0.59); #Neutrophils 6.5 thou/uL (1.40-6.50); %Eosinophils 0.7 % (0.0-10.0); %Lymphocytes 20.8 % (21.0-51.0); %Monocytes 6.3 % (0.0-10.0); %Neutrophils 71.2 % (42.0-75.0); Hemoglobin 7.7 g/dL (12.0-16.0); Mean Corpuscular Volume 62.2 fL (78.0-98.0); Mean Platelet Volume 9.7 fL (7.4-10.4); Platelet Count 557 thou/uL (130-400); RBC Distribution Width 21.4 % (11.5-14.5); Red Blood Cell (RBC) Count 4.29 mill/uL (4.20-5.40); White Blood Cell (WBC) Count 9.2 thou/uL (4.8-10.8)
[2019-09-30 13:06] LABS: ALT (SGPT) 13 U/L (8-55); AST (SGOT) 18 U/L (5-34); Albumin 3.9 g/dL (3.5-5.0); Alkaline Phosphatase 52 U/L (40-110); Anion Gap 11 mmol/L (10-20); BUN (Urea Nitrogen) 10 mg/dL (7.0-18.7); Bilirubin, Total 0.3 mg/dL (0.2-1.2); Calc. Creatinine Clearance 0 mL/min (70-130); Calcium 8.9 mg/dL (7.8-10.44); Carbon Dioxide 22 mmol/L (22-29); Chloride 108 mmol/L (98-107); Estimated GFR-MDRD 78; Glucose 75 mg/dL (70-105); Potassium 3.7 mmol/L (3.5-5.1); Protein, Total 7.9 g/dL (6.0-8.3); Sodium 137 mmol/L (136-145)
[2019-09-30 13:17] LABS: Anisocytosis MODERATE=16-30 cells (100X) (0-5/hpf); Hypochromia MODERATE=16-30 cells (100X) (0-5/hpf); MDiff Complete? YES; Microcytosis MODERATE=15-30 cells (100X) (0-5/hpf); Platelet Morphology Comment Appears Increased; Poikilocytosis SLIGHT = 6-15 cells (100X) (0-5/hpf); Polychromasia SLIGHT = 2-3 cells (100X) (0-2/hpf); Reflex for Review?? NO; Stomatocytes SLIGHT = 2-5 cells (100X) (0-1/hpf); Target Cells SLIGHT = 2-5 cells (100X) (0-1/hpf); Tear Drops SLIGHT = 2-5 cells (100X) (0-1/hpf)
== END 2019-09-30 15:58 | disposition home or self-care (01) ==
LOC: ERS 12:19
DX: D63.1 Anemia in chronic kidney disease (principal)
CPT/HCPCS: 36430; 80053; 85025; 86850; 86900; 86901; 99284; P9016

== ENCOUNTER 2020-11-15 11:13 | Emergency (ER) | payer MEDICAID ==
[2020-11-15 11:49] LABS: #Eosinphils 0.1 thou/uL (0.0-0.7); #Lymphocytes 1.2 thou/uL (1.20-3.40); #Monocytes 0.4 thou/uL (0.11-0.59); #Neutrophils 4.2 thou/uL (1.40-6.50); %Basophils 0.7 % (0.0-1.0); %Eosinophils 1.6 % (0.0-10.0); %Neutrophils 70.8 % (42.0-75.0); Mean Corpuscular HGB CONC 29.3 g/dL (32.0-36.0); Mean Corpuscular Hemoglobin 18.6 pg (27.0-31.0); Mean Corpuscular Volume 63.5 fL (78.0-98.0); Platelet Count 356 thou/uL (130-400); RBC Distribution Width 17.3 % (11.5-14.5); Red Blood Cell (RBC) Count 3.75 mill/uL (4.20-5.40); White Blood Cell (WBC) Count 5.9 thou/uL (4.8-10.8)
[2020-11-15 12:06] LABS: Hypochromia MODERATE=16-30 cells (100X) (0-5/hpf); MDiff Complete? YES; Microcytosis MODERATE=15-30 cells (100X) (0-5/hpf); Ovalocytes SLIGHT = 2-5 cells (100X) (0-1/hpf); Platelet Morphology Comment Appears Adequate; Polychromasia SLIGHT = 2-3 cells (100X) (0-2/hpf); Reflex for Review?? NO
[2020-11-15 12:21] LABS: ALT (SGPT) 18 U/L (8-55); AST (SGOT) 19 U/L (5-34); Albumin 3.7 g/dL (3.5-5.0); Alkaline Phosphatase 47 U/L (40-110); Anion Gap 11 mmol/L (10-20); BUN (Urea Nitrogen) 11 mg/dL (7.0-18.7); Bilirubin, Total 0.3 mg/dL (0.2-1.2); Calc. Creatinine Clearance 0 mL/min (70-130); Calcium 8.6 mg/dL (7.8-10.44); Carbon Dioxide 25 mmol/L (22-29); Chloride 107 mmol/L (98-107); Globulin 3.6 g/dL (2.4-3.5); Glucose 91 mg/dL (70-105); Potassium 3.9 mmol/L (3.5-5.1); Protein, Total 7.3 g/dL (6.0-8.3); Sodium 139 mmol/L (136-145)
[2020-11-15 13:41] LABS: PTT 31.2 sec (22.9-36.1); Prothrombin Time 13.1 sec (12.0-14.7)
[2020-11-15] MEDS ORDERED: Ibuprofen 200 MG TAB ONE (14:05)
[2020-11-15 15:33] LABS: BHCG - Serum Negative (NEGATIVE); Pregs Control Background? CLEAR/WHITE (CLR/WHITE); Pregs Control Bar Appear? YES (CONTROL BAR)
== END 2020-11-15 17:15 | disposition home or self-care (01) ==
LOC: ERS 11:13
DX: D50.0 Iron deficiency anemia secondary to blood loss (chronic) (principal); N92.0 Excessive and frequent menstruation with regular cycle; Z79.899 Other long term (current) drug therapy
CPT/HCPCS: 36415; 36430; 80053; 84703; 85025; 85610; 85730; 86850; 86900; 86901; P9016

== ENCOUNTER 2021-02-05 17:34 | Emergency (ER) | payer MEDICAID, SELFPAY | END 2021-02-05 18:52 | disposition home or self-care (01) | LOC: ERS 17:34 | DX: M54.5 Low back pain (principal) | CPT/HCPCS: 99283 ==

== ENCOUNTER 2021-02-22 12:06 | Emergency (ER) | payer SELFPAY | END 2021-02-22 14:03 | disposition home or self-care (01) | LOC: ERS 12:06 | DX: R19.7 Diarrhea, unspecified (principal); D64.9 Anemia, unspecified; Z79.899 Other long term (current) drug therapy | CPT/HCPCS: 99283 ==

== ENCOUNTER 2021-05-01 08:57 | Inpatient (IN) | payer SELFPAY ==
[2021-05-01] MEDS ORDERED: Heparin 1,000 UNITS/ML VIAL ONE (09:00)
[2021-05-01] MEDS ORDERED: Ketorolac Tromethamine 30 MG/ML VIAL ONE (09:15)
[2021-05-01] MEDS ORDERED: Acetaminophen 500 MG TAB ONE ×2 (09:15→17:40)
[2021-05-01] MEDS ORDERED: Ondansetron PF 4 MG/2 ML Vial ONE (09:15)
[2021-05-01 09:53] LABS: #Lymphocytes 0.7 thou/uL (1.20-3.40); #Monocytes 0.7 thou/uL (0.11-0.59); #Neutrophils 16.5 thou/uL (1.40-6.50); %Basophils 0.2 % (0.0-1.0); %Eosinophils 0.1 % (0.0-10.0); %Lymphocytes 3.6 % (21.0-51.0); %Monocytes 3.7 % (0.0-10.0); %Neutrophils 92.5 % (42.0-75.0); Hemoglobin 7.4 g/dL (12.0-16.0); Mean Corpuscular HGB CONC 29.7 g/dL (32.0-36.0); Mean Corpuscular Hemoglobin 18.6 pg (27.0-31.0); Mean Corpuscular Volume 62.8 fL (78.0-98.0); Mean Platelet Volume 8.7 fL (7.4-10.4); Platelet Count 424 thou/uL (130-400); RBC Distribution Width 17.5 % (11.5-14.5); Red Blood Cell (RBC) Count 3.99 mill/uL (4.20-5.40); White Blood Cell (WBC) Count 17.9 thou/uL (4.8-10.8)
[2021-05-01] MEDS ORDERED: Iopamidol-370 76% 500 ML 1 ML ONE (09:53)
[2021-05-01 10:03] LABS: ALT (SGPT) 19 U/L (8-55); AST (SGOT) 19 U/L (5-34); Albumin 3.5 g/dL (3.5-5.0); Alkaline Phosphatase 55 U/L (40-110); Anion Gap 10 mmol/L (10-20); BUN (Urea Nitrogen) 9 mg/dL (7.0-18.7); Bilirubin, Total 0.7 mg/dL (0.2-1.2); Calc. Creatinine Clearance 0 mL/min (70-130); Carbon Dioxide 22 mmol/L (22-29); Chloride 108 mmol/L (98-107); Globulin 3.5 g/dL (2.4-3.5); Glucose 133 mg/dL (70-105); Potassium 3.3 mmol/L (3.5-5.1); Sodium 137 mmol/L (136-145)
[2021-05-01 10:33] LABS: Hypochromia MODERATE=16-30 cells (100X) (0-5/hpf); MDiff Complete? YES; Microcytosis MODERATE=15-30 cells (100X) (0-5/hpf); Polychromasia SLIGHT = 2-3 cells (100X) (0-2/hpf); Reflex for Review?? NO
[2021-05-01 12:05] LABS: Bacteria/HPF 3+ HPF (None Seen); Bilirubin Negative (Negative); Blood, Urine Trace (Negative); Clarity Turbid (Clear); Glucose, Urine (Dipstick) Normal (Negative); Ketone, Urine Negative (Negative); Leukocyte 500 Leu/uL (Negative); Nitrite 2+ (Negative); Protein, Urine (Dipstick) 50 mg/dL (Neg-Trace); Specific Gravity, Urine 1.014 (1.002-1.036); Transitional Epithelial 0-3 HPF (None Seen); Urobilinogen Normal mg/dL (Less than 2); WBC/HPF Greater than 50 HPF (0-3); pH, Urine 5.5 (5.0-9.0)
[2021-05-01] MEDS ORDERED: cefTRIAXone\\ROCEPHIN 2 GM VIAL ONE (12:55)
[2021-05-01 14:11] LABS: SARS-CoV-2 NAA Rapid Test Not Detected (NotDetected)
[2021-05-01] MEDS ORDERED: Morphine 4 MG/ML VIAL SLOW IVP PRN (15:43)
[2021-05-01] MEDS: Acetaminophen 500 MG TAB PO PRN (17:47)
[2021-05-01] MEDS ORDERED: Ondansetron ODT 4 MG TAB ONE (18:17)
[2021-05-01] MEDS: Ondansetron ODT 4 MG TAB PO PRN (18:19)
[2021-05-01] MEDS: Sodium Chloride 0.9% 1,000 ML IV SCH (21:44)
[2021-05-02] MEDS: Acetaminophen 500 MG TAB PO PRN ×3 (00:05→16:42)
[2021-05-02 00:49] VITALS: BMI 34.9
[2021-05-02] MEDS: Ondansetron ODT 4 MG TAB PO PRN ×2 (05:16→16:39)
[2021-05-02 05:32] LABS: #Lymphocytes 0.4 thou/uL (1.20-3.40); #Monocytes 0.5 thou/uL (0.11-0.59); #Neutrophils 10.4 thou/uL (1.40-6.50); %Basophils 0.2 % (0.0-1.0); %Eosinophils 0.1 % (0.0-10.0); %Lymphocytes 3.7 % (21.0-51.0); %Monocytes 4.4 % (0.0-10.0); %Neutrophils 91.6 % (42.0-75.0); Hemoglobin 5.7 g/dL (12.0-16.0); Mean Corpuscular HGB CONC 29.6 g/dL (32.0-36.0); Mean Corpuscular Hemoglobin 18.9 pg (27.0-31.0); Mean Platelet Volume 9.9 fL (7.4-10.4); Platelet Count 220 thou/uL (130-400); RBC Distribution Width 17.6 % (11.5-14.5); White Blood Cell (WBC) Count 11.4 thou/uL (4.8-10.8)
[2021-05-02 05:37] LABS: Anion Gap 8 mmol/L (10-20); BUN (Urea Nitrogen) 9 mg/dL (7.0-18.7); Calc. Creatinine Clearance 117 mL/min (70-130); Calcium 7.5 mg/dL (7.8-10.44); Carbon Dioxide 20 mmol/L (22-29); Chloride 110 mmol/L (98-107); Glucose 110 mg/dL (70-105); Iron Less than 8 ug/dL (50-170); Iron Binding Capacity, Total 311 mcg/dL (265-497); Potassium 3.2 mmol/L (3.5-5.1); Sodium 135 mmol/L (136-145)
[2021-05-02] MEDS: Sodium Chloride 0.9% 1,000 ML IV SCH ×2 (05:37→05:38)
[2021-05-02] MEDS: Enoxaparin Sodium 40 MG/0.4 ML SYRINGE SC SCH ×2 (07:43→10:51)
[2021-05-02] MEDS: Ibuprofen 200 MG TAB PO PRN (08:53)
[2021-05-02] MEDS: Potassium Chloride 20 MEQ in Lactated Ringer's 1,000 ML IV SCH ×2 (10:50→23:39)
[2021-05-02] MEDS ORDERED: cefTRIAXone\\ROCEPHIN 2 GM in Sodium Chloride 0.9% 100 ML IVPB SCH (13:00)
[2021-05-02] MEDS ORDERED: Ondansetron PF 4 MG/2 ML Vial IVP PRN (19:39)
[2021-05-02] MEDS ORDERED: HYDROcodone/Acetaminophen 5/325 mg Tablet PO PRN ×2 (19:40)
[2021-05-02] MEDS: HYDROcodone/Acetaminophen 5/325 mg Tablet PO PRN (20:51)
[2021-05-03] MEDS: Acetaminophen 500 MG TAB PO PRN (04:33)
[2021-05-03] MEDS ORDERED: MEROPENEM 1 GM/50 ML 1 GM in Premix Bag 1 BAG IVPB SCH (09:00)
[2021-05-03] MEDS: HYDROcodone/Acetaminophen 5/325 mg Tablet PO PRN ×4 (09:17→23:43)
[2021-05-03 11:27] LABS: #Lymphocytes 0.6 thou/uL (1.20-3.40); #Monocytes 0.3 thou/uL (0.11-0.59); #Neutrophils 5.6 thou/uL (1.40-6.50); %Basophils 0.1 % (0.0-1.0); %Eosinophils 0.3 % (0.0-10.0); %Lymphocytes 8.9 % (21.0-51.0); %Monocytes 4.2 % (0.0-10.0); %Neutrophils 86.5 % (42.0-75.0); Mean Corpuscular HGB CONC 30.4 g/dL (32.0-36.0); Mean Corpuscular Hemoglobin 20.2 pg (27.0-31.0); Mean Corpuscular Volume 66.3 fL (78.0-98.0); Mean Platelet Volume 10.8 fL (7.4-10.4); Platelet Count 210 thou/uL (130-400); RBC Distribution Width 19.2 % (11.5-14.5); Red Blood Cell (RBC) Count 3.47 mill/uL (4.20-5.40); White Blood Cell (WBC) Count 6.4 thou/uL (4.8-10.8)
[2021-05-03 11:39] LABS: Anion Gap 10 mmol/L (10-20); BUN (Urea Nitrogen) 9 mg/dL (7.0-18.7); Calc. Creatinine Clearance 129 mL/min (70-130); Calcium 8.4 mg/dL (7.8-10.44); Carbon Dioxide 21 mmol/L (22-29); Chloride 108 mmol/L (98-107); Glucose 99 mg/dL (70-105); Potassium 3.2 mmol/L (3.5-5.1); Sodium 136 mmol/L (136-145)
[2021-05-03] MEDS: Potassium Chloride 20 MEQ in Lactated Ringer's 1,000 ML IV SCH (12:07)
[2021-05-03] MEDS ORDERED: Meropenem 1 GM in Sodium Chloride 0.9% 100 ML IVPB SCH (14:00)
[2021-05-03] MEDS: MEROPENEM 1 GM/50 ML 1 GM in Premix Bag 1 BAG IVPB SCH (17:10)
[2021-05-03] MEDS: Ibuprofen 200 MG TAB PO PRN (21:07)
[2021-05-04] MEDS: MEROPENEM 1 GM/50 ML 1 GM in Premix Bag 1 BAG IVPB SCH ×3 (00:23→16:26)
[2021-05-04] MEDS: HYDROcodone/Acetaminophen 5/325 mg Tablet PO PRN ×4 (05:09→19:06)
[2021-05-04 07:53] LABS: #Lymphocytes 0.8 thou/uL (1.20-3.40); #Monocytes 0.4 thou/uL (0.11-0.59); #Neutrophils 5.4 thou/uL (1.40-6.50); %Basophils 0.3 % (0.0-1.0); %Eosinophils 0.4 % (0.0-10.0); %Lymphocytes 11.4 % (21.0-51.0); %Monocytes 6.7 % (0.0-10.0); %Neutrophils 81.3 % (42.0-75.0); Hemoglobin 6.5 g/dL (12.0-16.0); Mean Corpuscular HGB CONC 30.4 g/dL (32.0-36.0); Mean Corpuscular Hemoglobin 20.1 pg (27.0-31.0); Mean Corpuscular Volume 66.2 fL (78.0-98.0); Platelet Count 211 thou/uL (130-400); RBC Distribution Width 19.6 % (11.5-14.5); Red Blood Cell (RBC) Count 3.24 mill/uL (4.20-5.40); White Blood Cell (WBC) Count 6.6 thou/uL (4.8-10.8)
[2021-05-04 08:10] LABS: Anion Gap 9 mmol/L (10-20); BUN (Urea Nitrogen) 10 mg/dL (7.0-18.7); Calc. Creatinine Clearance 132 mL/min (70-130); Calcium 8.5 mg/dL (7.8-10.44); Carbon Dioxide 23 mmol/L (22-29); Chloride 107 mmol/L (98-107); Glucose 97 mg/dL (70-105); Potassium 3.5 mmol/L (3.5-5.1); Sodium 135 mmol/L (136-145)
[2021-05-04] MEDS: Enoxaparin Sodium 40 MG/0.4 ML SYRINGE SC SCH ×2 (08:36→08:37)
[2021-05-04] MEDS: Ferrous Sulfate 325 MG TAB PO SCH (15:08)
[2021-05-04] MEDS: Potassium Chloride 20 MEQ in Lactated Ringer's 1,000 ML IV SCH (22:07)
[2021-05-05] MEDS: HYDROcodone/Acetaminophen 5/325 mg Tablet PO PRN ×5 (00:35→20:33)
[2021-05-05] MEDS: MEROPENEM 1 GM/50 ML 1 GM in Premix Bag 1 BAG IVPB SCH ×3 (00:35→16:59)
[2021-05-05 06:21] LABS: Hemoglobin 7.6 g/dL (12.0-16.0); Mean Corpuscular HGB CONC 31.1 g/dL (32.0-36.0); Mean Corpuscular Hemoglobin 21.5 pg (27.0-31.0); Mean Platelet Volume 10.9 fL (7.4-10.4); Platelet Count 241 thou/uL (130-400); RBC Distribution Width 22.9 % (11.5-14.5); Red Blood Cell (RBC) Count 3.53 mill/uL (4.20-5.40); White Blood Cell (WBC) Count 8.5 thou/uL (4.8-10.8)
[2021-05-05 06:23] LABS: Anion Gap 9 mmol/L (10-20); BUN (Urea Nitrogen) 10 mg/dL (7.0-18.7); Calc. Creatinine Clearance 130 mL/min (70-130); Calcium 8.5 mg/dL (7.8-10.44); Carbon Dioxide 24 mmol/L (22-29); Chloride 106 mmol/L (98-107); Glucose 95 mg/dL (70-105); Potassium 4.2 mmol/L (3.5-5.1); Sodium 135 mmol/L (136-145)
[2021-05-05 06:54] LABS: #Eosinphils 0.2 thou/uL (0.0-0.7); #Lymphocytes 1.7 thou/uL (1.20-3.40); #Neutrophils 5.6 thou/uL (1.40-6.50); %Basophils 0.4 % (0.0-1.0); %Eosinophils 2.4 % (0.0-10.0); %Lymphocytes 20.2 % (21.0-51.0); %Monocytes 11.2 % (0.0-10.0); %Neutrophils 65.8 % (42.0-75.0); Anisocytosis MODERATE=16-30 cells (100X) (0-5/hpf); MDiff Complete? YES
[2021-05-05] MEDS: Ferrous Sulfate 325 MG TAB PO SCH ×2 (08:35→17:00)
[2021-05-05] MEDS: Enoxaparin Sodium 40 MG/0.4 ML SYRINGE SC SCH (08:36)
[2021-05-05] MEDS: Acetaminophen 500 MG TAB PO PRN (23:33)
[2021-05-06] MEDS: MEROPENEM 1 GM/50 ML 1 GM in Premix Bag 1 BAG IVPB SCH ×2 (00:50→09:48)
[2021-05-06] MEDS: HYDROcodone/Acetaminophen 5/325 mg Tablet PO PRN (00:53)
[2021-05-06] MEDS: Ibuprofen 200 MG TAB PO PRN (00:54)
[2021-05-06 06:36] LABS: Hemoglobin 7.7 g/dL (12.0-16.0)
[2021-05-06] MEDS: Ferrous Sulfate 325 MG TAB PO SCH (08:07)
[2021-05-06 15:55] VITALS: BP 136/84; TEMP 98.4
== END 2021-05-06 15:30 | disposition home or self-care (01) | DRG 872 ==
LOC: ERS 08:57 → ERHOLD 14:03 → 2NO 19:34 → T4-A 05-02 14:56
PROVIDERS: ADMIT Family Medicine; ATTEND Internal Medicine
PROC: 30233N1 Transfusion of Nonautologous Red Blood Cells into Peripheral Vein, Percutaneous Approach (ICD-10-PCS; principal; 2021-05-01)
PROC: 02H633Z Insertion of Infusion Device into Right Atrium, Percutaneous Approach (ICD-10-PCS; 2021-05-05)
PROC: B548ZZA Ultrasonography of Superior Vena Cava, Guidance (ICD-10-PCS; 2021-05-05)
DX: A41.51 Sepsis due to Escherichia coli [E. coli] (principal); N10 Acute pyelonephritis; Z20.822 Contact with and (suspected) exposure to COVID-19; D50.9 Iron deficiency anemia, unspecified; F41.9 Anxiety disorder, unspecified; E87.6 Hypokalemia; F32.9 Major depressive disorder, single episode, unspecified; E87.8 Other disorders of electrolyte and fluid balance, not elsewhere classified; N92.0 Excessive and frequent menstruation with regular cycle
CPT/HCPCS: 0240U; 36415; 36416; 36430; 36569; 71045; 71275; 74176; 80048; 80053; 81003; 81015; 82274; 82728; 83540; 83550; 83605; 84484; 85018; 85025; 85379; 86850; 86900; 86901; 87040; 87077; 87086; 87149; 87186; 93005; 96365; 96366; 96375; C1751; J0696; J1644; J1650; J1885; J1956; J2185; J2270; J2405; J3370; J3480; J3490; J7030; J7120; P9016; Q0162; Q9967

== ENCOUNTER 2023-04-23 19:29 | Emergency (ER) | payer SELFPAY ==
[2023-04-23 20:14] LABS: #Basophils 0.1 thou/uL (0.0-0.2); #Eosinphils 0.2 thou/uL (0.0-0.7); #Monocytes 0.4 thou/uL (0.11-0.59); #Neutrophils 4.6 thou/uL (1.40-6.50); %Basophils 1.1 % (0.0-1.0); %Eosinophils 2.4 % (0.0-10.0); %Lymphocytes 28.9 % (21.0-51.0); %Monocytes 5.4 % (0.0-10.0); %Neutrophils 62.1 % (42.0-75.0); Hemoglobin 8.1 g/dL (12.0-16.0); Mean Corpuscular Volume 67.8 fl (78.0-98.0); Mean Platelet Volume 8.7 fL (7.4-10.4); Platelet Count 448 10x3/uL (130-400); RBC Distribution Width 20.7 % (11.5-14.5); Red Blood Cell (RBC) Count 4.26 mill/uL (4.20-5.40); White Blood Cell (WBC) Count 7.4 10x3/uL (4.8-10.8)
[2023-04-23] MEDS ORDERED: Ketorolac Tromethamine 30 MG/ML VIAL ONE (20:34)
[2023-04-23 20:40] LABS: ALT (SGPT) 21 U/L (8-55); AST (SGOT) 22 U/L (5-34); Alkaline Phosphatase 64 U/L (40-110); Anion Gap 14 mmol/L (10-20); BUN (Urea Nitrogen) 12 mg/dL (7.0-18.7); Bilirubin, Total 0.2 mg/dL (0.2-1.2); Calc. Creatinine Clearance 0 mL/min (70-130); Calcium 9.2 mg/dL (7.8-10.44); Carbon Dioxide 23 mmol/L (22-29); Chloride 106 mmol/L (98-107); Estimated GFR 55; Globulin 3.9 g/dL (2.4-3.5); Glucose 103 mg/dL (70-105); Protein, Total 7.9 g/dL (6.0-8.3); Sodium 139 mmol/L (136-145)
== END 2023-04-23 21:30 | disposition home or self-care (01) ==
LOC: ERS 19:29
DX: R07.9 Chest pain, unspecified (principal); M54.9 Dorsalgia, unspecified; F17.290 Nicotine dependence, other tobacco product, uncomplicated
CPT/HCPCS: 36415; 71045; 80053; 84484; 85025; 93005; 96372; J1885

== ENCOUNTER 2023-07-19 08:34 | Emergency (ER) | payer SELFPAY ==
[2023-07-19] MEDS ORDERED: traMADol HCl 50 MG TAB ONE (08:46)
[2023-07-19] MEDS ORDERED: Ketorolac Tromethamine 30 MG/ML VIAL ONE (08:46)
== END 2023-07-19 10:22 | disposition home or self-care (01) ==
LOC: ERS 08:34
DX: S83.92XA Sprain of unspecified site of left knee, initial encounter (principal); S93.402A Sprain of unspecified ligament of left ankle, initial encounter; F17.290 Nicotine dependence, other tobacco product, uncomplicated; D50.0 Iron deficiency anemia secondary to blood loss (chronic); W18.30XA Fall on same level, unspecified, initial encounter; Y93.01 Activity, walking, marching and hiking; Z79.899 Other long term (current) drug therapy
CPT/HCPCS: 96372; J1885

== ENCOUNTER 2023-10-30 12:17 | Emergency (ER) | payer BC ==
[2023-10-30] MEDS ORDERED: Meclizine HCl 25 MG TAB ONE (13:19)
[2023-10-30] MEDS ORDERED: Aspirin Chewable 81 MG TAB ONE (13:19)
[2023-10-30 13:21] LABS: #Eosinphils 0.1 thou/uL (0.0-0.7); #Monocytes 0.4 thou/uL (0.11-0.59); #Neutrophils 4.5 thou/uL (1.40-6.50); %Basophils 0.6 % (0.0-1.0); %Lymphocytes 23.3 % (21.0-51.0); %Monocytes 6.1 % (0.0-10.0); %Neutrophils 67.5 % (42.0-75.0); Hematocrit 30.1 % (36.0-47.0); Hemoglobin 8.9 g/dL (12.0-16.0); Mean Corpuscular HGB CONC 29.6 g/dL (32.0-36.0); Mean Corpuscular Hemoglobin 21.5 pg (27.0-31.0); Mean Corpuscular Volume 72.9 fl (78.0-98.0); Platelet Count 262 10x3/uL (130-400); Red Blood Cell (RBC) Count 4.13 mill/uL (4.20-5.40); White Blood Cell (WBC) Count 6.6 10x3/uL (4.8-10.8)
[2023-10-30 13:38] LABS: ALT (SGPT) 19 U/L (8-55); AST (SGOT) 19 U/L (5-34); Albumin 3.7 g/dL (3.5-5.0); Alkaline Phosphatase 59 U/L (40-110); Anion Gap 11 mmol/L (10-20); BUN (Urea Nitrogen) 11 mg/dL (7.0-18.7); Bilirubin, Total 0.3 mg/dL (0.2-1.2); Calc. Creatinine Clearance 0 mL/min (70-130); Calcium 8.7 mg/dL (7.8-10.44); Carbon Dioxide 22 mmol/L (22-29); Chloride 108 mmol/L (98-107); Estimated GFR 100; Globulin 3.4 g/dL (2.4-3.5); Glucose 89 mg/dL (70-105); Lipase 35 U/L (8-78); Potassium 3.9 mmol/L (3.5-5.1); Protein, Total 7.1 g/dL (6.0-8.3); Sodium 137 mmol/L (136-145)
[2023-10-30 13:55] LABS: CellaVision Operator ID LAB.GE; Hypochromia SLIGHT = 6-15 cells HPF (0-5); Microcytosis SLIGHT = 6-15 cells HPF (0-5); Platelet Adequacy Comment Platelets Normal; Polychromasia MODERATE = 3-4 cells HPF (0-2)
[2023-10-30 14:06] LABS: Troponin I Less than 0.010 ng/mL (< 0.028)
== END 2023-10-30 15:40 | disposition home or self-care (01) ==
LOC: ERS 12:17
DX: R07.9 Chest pain, unspecified (principal); R42 Dizziness and giddiness; D64.9 Anemia, unspecified; Z79.899 Other long term (current) drug therapy
CPT/HCPCS: 36415; 71045; 80053; 83690; 84484; 85025; 93005